=== PATIENT | male | born 1960 | race Caucasian/White ===

== ENCOUNTER 2018-07-27 02:43 | Inpatient (IN) | END 2018-07-31 21:00 | disposition home or self-care (01) | DRG 291 ==

== ENCOUNTER 2019-05-10 01:18 | Emergency (ER) | payer MEDICARE, OTHER ==
[~2019-05-10] VITALS: Ht 175.3 cm; Wt 93.9 kg
[~2019-05-10 01:18] MED LIST: ATOR20TA38 PO; CALC667C PO; HYDR-3672 PO
[2019-05-10 01:24] VITALS: Ht 175.3 cm; Wt 93.9 kg
[2019-05-10] MEDS ORDERED: NICARDipine HCL 30 MG CAPSULE PO ONE (05:30)
[2019-05-10 05:50] VITALS: BP 190/93; PULSE 68; RESP 18
== END 2019-05-10 05:50 | disposition home or self-care (01) ==
LOC: E/R 01:18
DX: R06.02 Shortness of breath (principal); I50.9 Heart failure, unspecified; I11.0 Hypertensive heart disease with heart failure; Z79.82 Long term (current) use of aspirin
CPT/HCPCS: 71045; 80048; 85025